=== PATIENT | female | born 1985 | race Caucasian/White ===

== ENCOUNTER → 2019-03-06 | Outpatient (CLI) | payer BC ==
[~2019-03-06] MED LIST: ALPR-475 PO; DOCU-131 PO; HYDR-3240 PO; IBUP-1222 PO; LEVO25TA2 PO; LEVO75TA5 PO; PROP10TA16 PO
== END | disposition home or self-care (01) ==
LOC: STAR 10:26
PROVIDERS: ATTEND Obstetrics & Gynecology
DX: Z02.9 Encounter for administrative examinations, unspecified (principal)

== ENCOUNTER 2019-03-14 06:03 | Day surgery (SDC) | payer BC ==
[2019-03-06 11:27] VITALS: BP 126/91
[~2019-03-14] VITALS: Ht 165.1 cm; Wt 58.2 kg
[2019-03-14] MEDS ORDERED: BUPIVACAINE/PF 0.25% ONE (06:43)
[2019-03-14] MEDS ORDERED: SODIUM CHLORIDE 0.9% 100 ML ONE (06:44)
[2019-03-14] MEDS ORDERED: EPINEPHRINE 1 MG/ML, 1ML ONE (06:44)
[2019-03-14] MEDS ORDERED: VASOPRESSIN 20 UNIT/ML, 1ML ONE (06:44)
[2019-03-14] MEDS ORDERED: LACTATED RINGERS 1,000 ML IV SCH (06:51)
[2019-03-14 07:23] LABS: HCG UR SG 1.024 (1.003-1.030)
[2019-03-14] MEDS ORDERED: GABAPENTIN 300 MG CAPSULE PO ONE (07:30)
[2019-03-14] MEDS ORDERED: ACETAMINOPHEN 500 MG TABLET PO ONE (07:30)
[2019-03-14] MEDS ORDERED: SCOPOLAMINE PATCH, 1.5MG PATCH.TD72 TD ONE (07:30)
[2019-03-14] MEDS ORDERED: FENTANYL PF 250 MCG/5ML ONE (07:35)
[2019-03-14] MEDS ORDERED: MIDAZOLAM 1 MG/ML, 2ML ONE (07:35)
[2019-03-14] MEDS ORDERED: PHENYLEPHRINE 10 MG/ML ONE (07:38)
[2019-03-14] MEDS ORDERED: KETOROLAC 30 MG/1 ML ONE (07:41)
[2019-03-14] MEDS ORDERED: ONDANSETRON 2MG/ML, 2ML ONE (07:42)
[2019-03-14] MEDS ORDERED: CEFAZOLIN 1,000 MG ONE (07:42)
[2019-03-14] MEDS ORDERED: NEOSTIGMINE 1 MG/ML, 10ML ONE (07:42)
[2019-03-14] MEDS ORDERED: DEXAMETHASONE 4 MG/ML, 1ML ONE (07:42)
[2019-03-14] MEDS ORDERED: ROCURONIUM 10MG/ML,5ML ONE (07:42)
[2019-03-14] MEDS ORDERED: PROPOFOL 10 MG/ML, 20ML ONE (07:42)
[2019-03-14] MEDS ORDERED: GLYCOPYRROLATE 0.2MG/1ML, 5ML ONE (07:42)
[2019-03-14] MEDS ORDERED: MEPERIDINE/PF 25MG/0.5ML IVPush PRN (08:00)
[2019-03-14] MEDS ORDERED: FENTANYL PF 100 MCG/2ML IV PRN (08:00)
[2019-03-14] MEDS ORDERED: MORPHINE SULFATE 4 MG/ML, 1ML IVPush PRN (08:00)
[2019-03-14] MEDS ORDERED: PROMETHAZINE 25 MG/ML, 1ML IV PRN (08:00)
[2019-03-14] MEDS ORDERED: OXYcodone 5 MG/5 ML ORAL.SOL UDC PO PRN (08:00)
[2019-03-14] MEDS ORDERED: PROMETHAZINE 25 MG SUPP PR PRN (08:00)
[2019-03-14] MEDS ORDERED: ONDANSETRON 2MG/ML, 2ML IV PRN (08:00)
[2019-03-14] MEDS ORDERED: PROMETHAZINE 12.5 MG SUPP PR PRN (08:00)
[2019-03-14] MEDS ORDERED: LABETALOL 5MG/ML, 20ML IV PRN (08:00)
[2019-03-14] MEDS ORDERED: PROMETHAZINE 25 MG/ML, 1ML IM PRN ×2 (08:00)
[2019-03-14] MEDS ORDERED: ONDANSETRON ODT 8 MG PO PRN (08:00)
[2019-03-14] MEDS ORDERED: HYDROmorphone 2 MG/ML, 1ML IVPush PRN (08:00)
[2019-03-14] MEDS ORDERED: hydrALAzine 20 MG/ML, 1ML IV PRN (08:00)
[2019-03-14] MEDS ORDERED: HALOPERIDOL 5 MG/ML IV PRN (08:00)
[2019-03-14] MEDS ORDERED: HYDROcodone/APAP 7.5-325MG/15ML UDC ONE (09:22)
[2019-03-14] MEDS ORDERED: MEPERIDINE/PF 25MG/ML,1ML ONE (09:27)
[2019-03-14] MEDS ORDERED: HYDROcodone/APAP 7.5-325MG/15ML UDC PO ONE (09:30)
== END 2019-03-14 12:00 | disposition home or self-care (01) ==
LOC: OUT 06:03
PROVIDERS: ATTEND Obstetrics & Gynecology
DX: Z30.2 Encounter for sterilization (principal); N92.0 Excessive and frequent menstruation with regular cycle; E03.9 Hypothyroidism, unspecified; F41.9 Anxiety disorder, unspecified; Z79.891 Long term (current) use of opiate analgesic; Z79.890 Hormone replacement therapy; Z79.899 Other long term (current) drug therapy; Z82.61 Family history of arthritis
CPT/HCPCS: 58563; 58670; 81025; 88302; J0171; J0690; J1100; J1885; J2175; J2250; J2370; J2405; J2704; J2710; J3010; J3490; J7120